=== PATIENT | female | born 1965 | race African-American/Black ===

== ENCOUNTER 2018-11-20 21:02 | Inpatient (IN) ==
[2018-11-21] MEDS ORDERED: NICOTINE 21 MG/24 HR PATCH TRANSDERM PRN (00:22)
[2018-11-21] MEDS ORDERED: ONDANSETRON 4 MG/2 ML VIAL IV PRN (00:22)
[2018-11-21] MEDS ORDERED: MORPHINE 4 MG/1 ML VIAL IV PRN (00:22)
[2018-11-21] MEDS ORDERED: diphenhydrAMINE CAP 25 MG CAPSULE PO PRN (00:22)
[2018-11-21] MEDS ORDERED: ACETAMINOPHEN 325 MG TABLET PO PRN (00:22)
[2018-11-21 01:16] LABS: Basophils % 0.2 % (0.0-0.8); Hematocrit 34.2 VOL% (35.7-47.0); Hemoglobin 11.4 GM/DL (12.0-16.0); Immature Granulocytes % 0.8 %; Immature Granulocytes Absolute 0.09 #; Lymphocytes # 0.9 10*3/uL (1.4-4.0); Lymphocytes % 7.5 % (21.3-54.2); Mean Corpuscular HGB Conc 33.3 GM/DL (32-36); Mean Platelet Volume 10.7 FL (9.6-12.0); Monocytes % 0.8 % (1.7-12.7); Neutrophils % 90.7 % (38.7-73.9); Platelet Count 232 T/CUMM (130-400); Red Blood Count 4.33 MC/CUMM (3.8-5.5); Red Cell Distribution Width 13.2 % (9.3-17.3); White Blood Count 11.4 T/CUMM (4-12)
[2018-11-21 01:23] LABS: Alanine Aminotransferase 17 U/L (13-56); Albumin 3.3 G/DL (3.4-5.0); Alkaline Phosphatase 103 U/L (45-117); Aspartate Amino Transferase 17 U/L (0-37); Bilirubin,Total < 0.39 MG/DL (0.2-1.0); Blood Urea Nitrogen 36 MG/DL (7-18); Calcium 8.7 MG/DL (8.5-10.1); Estimated Glom Filtration Rate 0 ML/MIN; Glucose 145 MG/DL (74-106); HDL Cholesterol 55 MG/DL (40-60); Risk Ratio 2.47; Total Protein 7.7 G/DL (6.4-8.3); Triglycerides 60 MG/DL (2-150)
[2018-11-21 02:52] LABS: Band Neutrophils 1 % (0-10); Lymphocytes 10 % (20-55); Platelet Estimate Normal; Segmented Neutrophils 89 % (50-85); Total Cells Counted 100
[2018-11-21 04:32] LABS: Apearance,Urine CLEAR (Clear); Bacteria,Urine Occasional /HPF (Few); Bilirubin,Urine Negative (Negative); Blood, Urine Negative (Negative); Glucose,Urine (UA) Negative (Negative); Ketones,Urine Negative (Negative); Mucus,Urine Occasional /LPF (Occasional); Nitrite,Urine Negative (Negative); Protein,Urine Negative; RBC,Urine 1 /HPF (0-4); Urine Color Straw (Yellow); Urine Specific Gravity 1.005 (1.001-1.035); Urine Urobilinogen < 2.0 EU/DL (0.2-1.0); WBC,Urine 1 /HPF (0-6)
[2018-11-21] MEDS: SODIUM CHLORIDE 0.9% 1,000 ML IV SCH ×2 (06:31→17:08)
[2018-11-21] MEDS: POTASSIUM CHLORIDE 20 MEQ TABLET PO PRN ×4 (08:13→16:58)
[2018-11-21] MEDS ORDERED: DEXTROSE 50% 25 GM/50 ML VIAL IV PRN (08:50)
[2018-11-21] MEDS ORDERED: GLUCAGON 1 MG VIAL IM PRN (08:50)
[2018-11-21 09:46] LABS: Osmolality,Calculated 294.1 MOS/KG (273-304)
[2018-11-21] MEDS: INSULIN LISPRO 100 UNIT/ML SUBCUT SCH ×3 (11:08→21:11)
[2018-11-22 05:44] LABS: Basophils % 0.3 % (0.0-0.8); Eosinophils # 0.1 10*3/uL (0.0-0.87); Eosinophils % 0.5 % (0.00-10.9); Hematocrit 32.2 VOL% (35.7-47.0); Hemoglobin 10.4 GM/DL (12.0-16.0); Immature Granulocytes % 0.5 %; Immature Granulocytes Absolute 0.07 #; Lymphocytes % 22.4 % (21.3-54.2); Mean Corpuscular HGB Conc 32.3 GM/DL (32-36); Mean Corpuscular Volume 81.1 FL (87-102); Mean Platelet Volume 10.9 FL (9.6-12.0); Monocytes % 6.4 % (1.7-12.7); Neutrophils % 69.9 % (38.7-73.9); Platelet Count 224 T/CUMM (130-400); Red Blood Count 3.97 MC/CUMM (3.8-5.5); Red Cell Distribution Width 13.6 % (9.3-17.3); White Blood Count 13.5 T/CUMM (4-12)
[2018-11-22 06:07] LABS: Albumin 3.2 G/DL (3.4-5.0); Calcium 8.4 MG/DL (8.5-10.1); Osmolality,Calculated 294.7 MOS/KG (273-304)
[2018-11-22] MEDS: INSULIN LISPRO 100 UNIT/ML SUBCUT SCH ×4 (07:39→21:19)
[2018-11-22] MEDS ORDERED: MAGNESIUM SULF RIDER 2 GM in PREMIX 1 EACH IV ONE (08:08)
[2018-11-22] MEDS: SODIUM CHLORIDE 0.9% 1,000 ML IV SCH ×2 (14:24→22:03)
[2018-11-23 05:07] LABS: Basophils % 0.5 % (0.0-0.8); Eosinophils # 0.2 10*3/uL (0.0-0.87); Eosinophils % 2.5 % (0.00-10.9); Immature Granulocytes % 0.3 %; Immature Granulocytes Absolute 0.02 #; Lymphocytes # 2.9 10*3/uL (1.4-4.0); Lymphocytes % 37.2 % (21.3-54.2); Mean Corpuscular HGB Conc 32.3 GM/DL (32-36); Mean Corpuscular Volume 80.3 FL (87-102); Mean Platelet Volume 10.4 FL (9.6-12.0); Neutrophils % 51.5 % (38.7-73.9); Platelet Count 216 T/CUMM (130-400); Red Blood Count 3.86 MC/CUMM (3.8-5.5); Red Cell Distribution Width 13.7 % (9.3-17.3); White Blood Count 7.9 T/CUMM (4-12)
[2018-11-23 05:27] LABS: Calcium 8.6 MG/DL (8.5-10.1); Osmolality,Calculated 288.7 MOS/KG (273-304)
[2018-11-23] MEDS: POTASSIUM CHLORIDE 20 MEQ TABLET PO PRN ×3 (06:02→10:54)
[2018-11-23] MEDS: SODIUM CHLORIDE 0.9% 1,000 ML IV SCH (06:02)
[2018-11-23] MEDS: INSULIN LISPRO 100 UNIT/ML SUBCUT SCH ×2 (07:37→10:54)
[2018-11-23] MEDS ORDERED: MAGNESIUM SULF RIDER 2 GM in PREMIX 1 EACH IV ONE (11:13)
[2018-11-23 12:06] VITALS: BP 153/78
== END 2018-11-23 15:35 | disposition home or self-care (01) | DRG 684 ==
LOC: N.5E → SUATTDRO 22:33
PROVIDERS: ADMIT Internal Medicine; ATTEND Internal Medicine